=== PATIENT | male | born 1965 | race Hispanic/Latino ===

== ENCOUNTER 2025-05-24 23:28 | Emergency (ER) | payer BC, SELFPAY ==
[2025-05-24 23:31] VITALS: BP 118/88
[2025-05-24 23:36] VITALS: BP 118/88
[2025-05-25] VITALS (9 sets, daily range): BP systolic 103–133; BP diastolic 75–86
--- NOTE | 2025-05-25 00:14 | ED.GENMED ---
History of Present Illness
General
Chief Complaint: Chest Pain
Source: patient
Time Seen by Provider: 05/24/25 23:51
History of Present Illness
History of Present Illness:
59-year-old male presents to the emergency room by ambulance after having a syncopal episode at home. Patient has a history of a heart transplant. The heart transplant occurred at [facility] on April 13. He was
released from the hospital just about a week ago. He came to this area to stay with a relative who helps care for him. Patient states he had a heart transplant due to heart failure. He is unable to say why he had the heart failure. Patient has a
bag of medication with him which contains antirejection medications. He states that all the medication he has been taking. There are no antihypertensives, diuretics, cholesterol medications. Patient states he was on Coumadin but if it is not in
his bag that he is not taking it anymore. No fever or chills. Patient feels relatively back to baseline at this point.
Past History
Past History
ED Past Medical History: CAD, CHF, HTN, Hypercholesterolemia, IDDM and Hypothyroidism
ED Past Surgical History: Cardiac (LVAD )
Social History
Tobacco: Non-smoker
Alcohol: None
Personal: Single
Living: with family
Family History
Family History: Other (Noncontributory)
Phy Exam
Physical Exam
Physical Exam:
General: Awake, Alert, Oriented X3. Prescribed male
Vitals: unremarkable
Head: Atraumatic
Eyes: Pupils equal, EOMI
Throat: Airway intact, no exudates
Neck: Trachea midline, dressing over right cordis site
Chest: Sternotomy incision well-approximated, no signs of infection
Lungs: Clear and equal b/l
Heart: Regular rate, no murmurs
Abd: Soft, Nontender, No pulsatile mass
Neuro: Nonfocal
Skin: Warm, dry, no rash
Extremities: pulses equal b/l, no edema
Scores
Heart Score for Chest Pain Patients
STEMI patient?: Not applicable
Course
Orders/Labs/Results
Orders:
Orders
05/24/25 23:39
ECG [Electrocardiogram (*1)] Urgent
Reason for Study: Chest Pain
EKG- Treatment ONCE
05/24/25 23:57
Complete Blood Count/With Diff Urgent
Comprehensive Metabolic Panel Urgent
Prothrombin Time Urgent
05/25/25 00:02
B-Hydroxybutyrate Urgent
05/25/25 00:11
CR Chest - 2 Views Urgent
Comment:
Reason For Exam: syncope
05/25/25 00:24
Troponin I Urgent
05/25/25 01:01
Add On- LAB Urgent
Tests Added?: beta-hydroxybuterate
0.9% Sodium Chloride 1000 ml [Nss] 1,000 ml IV BOLUS
05/25/25 01:33
Venous Blood Gas Urgent
%Oxygen/Room Air: ra
05/25/25 02:00
Insulin Glargine Lantus [Lantus] 8 units Subcutaneous Insulin Syringe [Syringe-Insulin] 0 unit SC ONCE
05/25/25 04:29
Acetaminophen [Tylenol] 650 mg .ROUTE .STK-MED ONE
Acetaminophen [Tylenol] 650 mg PO NOW STA
05/25/25 05:53
Tramadol HCl [Ultram] 50 mg .ROUTE .STK-MED ONE
05/25/25 05:54
Tramadol HCl [Ultram] 50 mg PO NOW STA
Abnormal Lab Results
05/25/25 05/25/25 05/25/25
00:02 00:24 01:33
RBC 3.70 L 10^6/uL
(4.70-6.10)
Hgb 11.2 L g/dL
(13.0-18.0)
Hct 33.0 L %
(39.0-52.0)
RDW 17.2 H %
(11.5-14.5)
MPV 12.1 H fL
(7.4-10.4)
Abs Immat Gran (auto) 0.3 H 10^3/uL
(0-0.05)
Absolute Lymphs (auto) 0.3 L 10^3/uL
(1.2-3.4)
Immature Gran % 4.2 H %
(0-0.5)
Neutrophils % 85.2 H %
(42.2-75.2)
Lymphocytes % 4.4 L %
(20.5-51.1)
PT 16.2 H Sec
(11.4-14.6)
VBG pCO2 31 L mmHg
(35-48)
VBG pO2 168 H mmHg
(30-50)
VBG HCO3 17.5 L mmol/L
(22-27)
Sodium 128 L mmol/L
(135-145)
Carbon Dioxide 17 L mmol/L
(22-30)
BUN 52 H mg/dl
(9-20)
Creatinine 1.4 H mg/dL
(0.7-1.3)
Glucose 611 H* mg/dl
(70-99)
Troponin I 0.077 H* ng/ml
POC Glucose
05/25/25 05/25/25 05/25/25
02:46 04:05 05:06
RBC
Hgb
Hct
RDW
MPV
Abs Immat Gran (auto)
Absolute Lymphs (auto)
Immature Gran %
Neutrophils %
Lymphocytes %
PT
VBG pCO2
VBG pO2
VBG HCO3
Sodium
Carbon Dioxide
BUN
Creatinine
Glucose
Troponin I
POC Glucose 557 H* mg/dl 476 H* mg/dl 437 H mg/dl
(70-99) (70-99) (70-99)
05/25/25 00:02
05/25/25 04:10
Vital Signs
Initial and Last Documented VS:
Initial Vital Signs
Pulse Resp BP Pulse Ox
116 20 118/88 100
05/24/25 23:31 05/24/25 23:31 05/24/25 23:31 05/24/25 23:31
Last Documented Vital Signs
Temp Pulse Resp BP Pulse Ox
98.1 F 105 23 120/82 100
05/25/25 01:25 05/25/25 06:00 05/25/25 06:00 05/25/25 06:00 05/25/25 06:00
MDM/Problems Addressed
Differential Diagnosis Includes:
Dysrhythmia, dehydration, hypotension, electrolyte abnormality, rejection
MDM/Problems Addressed:
Patient presents after having a syncopal episode at home. Also some chest pressure and some shortness of breath which has resolved. EKG here shows no acute ischemic changes. White count is normal. VBG obtained which is essentially normal
including a normal pH. Chemistry shows significant hyperglycemia with a glucose of 611. BUN is 52 creatinine 1.4. Unclear if this is his baseline. Troponin mildly elevated 0.077. I communicated with the advanced heart failure team at [place]
[facility]. I spoke with Dr. Remy who accepted the patient transfer. He was not able to immediately inform me of the patient's baseline labs. However he was comfortable with IV fluid bolus for the hyperglycemia. Patient also given 8 units
of Lantus subcutaneously. Glucose improving. Patient awaiting bed
Chronic conditions affecting care: Cardiomyopathy
*Radiology
Radiology exam reviewed: preliminary read by ED provider (No acute I reviewed the patient's chest x-ray)
*Pulse Oximetry
SaO2: 100
Oxygen Mode of Delivery: Room air
Patient hypoxic: no
*EKG
Interpreted by ED Provider?: Yes
Interpretation: abnormal
Heart Rate: 118
Rate: tachycardiac
Rhythm: sinus tachycardia
[place]: normal axis
Interval: normal interval
QRS Pattern: normal QRS
Ischemia: non-specific ST changes
*Occupational Analyst Interpretation
Rate: tachycardiac
Interpretation: abnormal
Rhythm: sinus tachycardia
*Critical Care Note
Total Time (30-74mins, 75-104mins- exclusive of procedures): Not Applicable
ED Attending Note
-
Portions of this chart may have been created with voice recognition software.� Occasional wrong word or��sound alike� substitutions may have occurred due to the inherent limitations of voice recognition software.
Discharge Plan
Departure
Patient Disposition: Acute Care Hospital
Date of Disposition: 05/25/25
Time of Disposition: 01:32
Condition: Fair
Discharge Problem:
Syncope, Hyperglycemia, Heart transplanted
Referrals:
Serjio Araujo MD [Family Provider, Orthopedics]
Hospital Transfer
Other hospital: [facility]
I certify that the patient requires transfer: Yes
Discussed case with accepting physician: Dr Remy
Reason for transfer: specialties available and continuity of care PCP
Interventions
Interventions:
*Risk Screen - Suicide Last Done: 05/24/25 23:31
*General Assessment Last Done: 05/25/25 00:30
*Neglect/Abuse Screening Last Done: 05/24/25 23:31
*ED- Fall Risk Assessment Last Done: 05/25/25 00:30
*ED COVID-19 Vaccine History Last Done: 05/25/25 00:30
*ED Influenza Vaccine History Last Done: 05/25/25 00:30
ED- Cardiac Assessment Last Done: 05/25/25 00:30
Discharge Date and Time
Print Language: URDU
[2025-05-25 00:20] LABS: Hematocrit 33.0 % (39.0-52.0); Hemoglobin 11.2 g/dL (13.0-18.0); Mean Corp Hgb Conc. 33.9 g/dL (33.0-37.0); Mean Corpuscular Volume 89.2 fL (80.0-94.0); Nucleated Red Blood Cells % 0 % (-); Platelet Count 184 10^3/uL (130-400); Red Cell Dist. Width 17.2 % (11.5-14.5)
[2025-05-25 00:25] LABS: INR 1.28; PT 16.2 Sec (11.4-14.6)
[2025-05-25 00:47] LABS: ALT (SGPT) 19 U/L (0-50); AST (SGOT) 32 U/L (17-59); Albumin 3.9 g/dl (3.5-5.0); Alkaline Phosphatase 83 U/L (38-126); Blood Urea Nitrogen 52 mg/dl (9-20); Calcium 8.8 mg/dl (8.4-10.2); Carbon Dioxide 17 mmol/L (22-30); Chloride 99 mmol/L (98-107); Glucose 611 mg/dl (70-99); Potassium 5.0 mmol/L (3.5-5.1); Sodium 128 mmol/L (135-145); Total Protein 6.3 g/dl (6.3-8.2); eGFR 57.90
[2025-05-25 01:05] LABS: Troponin I 0.077 ng/ml
[2025-05-25 01:42] LABS: Venous Blood Gas B.E. -6.9 mmol/L (-4 to +4); Venous Blood Gas O2 Sat % 100.0 %
[2025-05-25] MEDS: NSS 1000 IV (01:58)
[2025-05-25] MEDS: LANTUS 0.08 UNITS SC (02:03)
[2025-05-25 02:48] LABS: Glucose - Point of Care 557 mg/dl (70-99)
[2025-05-25 04:07] LABS: Glucose - Point of Care 476 mg/dl (70-99)
[2025-05-25] MEDS: TYLENOL 650 MG PO (04:30)
[2025-05-25 05:08] LABS: Glucose - Point of Care 437 mg/dl (70-99)
[2025-05-25] MEDS: ULTRAM 50 MG PO (05:54)
[2025-05-25 06:31] LABS: Glucose - Point of Care 469 mg/dl (70-99)
[2025-05-25] MEDS: NOVOLOG vial 8 UNITS SC (07:33)
[2025-05-25 08:01] LABS: Glucose - Point of Care 417 mg/dl (70-99)
[2025-05-25] MEDS: NOVOLOG vial 10 UNITS SC (09:08)
[2025-05-25 09:42] LABS: Glucose - Point of Care 322 mg/dl (70-99)
== END 2025-05-25 10:06 | disposition short-term general hospital (02) ==
LOC: EMR 23:28
PROVIDERS: EMERGENCY PHYSICIAN Emergency Medicine; FAMILY PHYSICIAN Orthopaedic Surgery Adult Reconstructive Orthopaedic Surgery
DX: R55 Syncope and collapse (principal); E10.65 Type 1 diabetes mellitus with hyperglycemia; Z94.1 Heart transplant status; R00.0 Tachycardia, unspecified; I42.9 Cardiomyopathy, unspecified; I25.10 Atherosclerotic heart disease of native coronary artery without angina pectoris; I11.0 Hypertensive heart disease with heart failure; I50.9 Heart failure, unspecified; E78.00 Pure hypercholesterolemia, unspecified; E03.9 Hypothyroidism, unspecified
CPT/HCPCS: 99285; 96360; 96372 ×3; 71046; 80053; 82010; 82805; 82962; 84484; 85025; 85610; 93005